=== PATIENT | female | born 1985 | race African-American/Black ===

== ENCOUNTER 2020-06-07 13:34 | Outpatient (RCR) | payer BC, SELFPAY ==
[2020-06-07 13:44] VITALS: BMI 43.0
[2020-06-07 13:49] VITALS: BMI 43.0
== END 2020-08-03 16:31 | disposition home or self-care (01) ==
LOC: ANHDMC 13:34
PROVIDERS: Visit Provider Obstetrics & Gynecology
DX: O24.419 Gestational diabetes mellitus in pregnancy, unspecified control (principal); Z71.3 Dietary counseling and surveillance; Z71.89 Other specified counseling; Z3A.00 Weeks of gestation of pregnancy not specified
CPT/HCPCS: 97802; G0108

== ENCOUNTER 2020-06-22 13:49 | Outpatient (CLI) | payer BC, SELFPAY ==
--- NOTE | ~2020-06-22 | US_ITS ---
EXAMINATION: US OB follow up DATE: 06/22/2020 14:34 INDICATION: Gestational diabetes TECHNIQUE: Real-time ultrasound of the pelvis was performed. The interpreting radiologist was not pre sent for the study. COMPARISON: None. FINDINGS: There is a single living fetus in vertex presentation. The placenta is anterior. Small anechoic veno us pickard within the placenta. heart rate is 161 beats per minute (bpm). The amniotic fluid volum e is subjectively normal. The following biometric data were obtained: BPD: 7.9 cm -> 31 weeks 5 days Head circumference: 28.7 cm -> 31 weeks 4 days Abdominal circumference: 29.9 cm -> 33 weeks 6 days Femur length: 6.4 cm -> 33 weeks 1 days These measurements are concordant. Head circumference to abdominal circumference ratio: 0.96 (normal range 0.96-1.12). Estimated weight: 2138 g (+/-) 321 g. or 4 lbs. 11 oz. (+/-) 11 oz. IMPRESSION: 1. Single living fetus in vertex presentation with heart rate of 161 bpm. 2. Gestational age by ultrasound of 32 weeks 4 day(s) +/- 2 week(s) 2 day(s) with ultrasound estimate d date of delivery (MOE) of 08/13/2020. Estimated weight is 77th percentile by Hadlock criteria when 08/17/2020 is used as the MOE. Please correlate with clinical information or earlier ultrasound s for most accurate MOE. Reviewed, dictated and finalized at location A. IMPRESSION: 1. Single living fetus in vertex presentation with heart rate of 161 bpm. 2. Gestational age by ultrasound of 32 weeks 4 day(s) +/- 2 week(s) 2 day(s) wi th ultrasound estimated date of delivery (MOE) of 08/13/2020. Estimated w eight is 77th percentile by Hadlock criteria when 08/17/2020 is used as the MOE . Please correlate with clinical information or earlier ultrasounds for most ac curate MOE.
== END 2020-06-22 13:50 | disposition home or self-care (01) ==
LOC: ANHIMG 13:55
PROVIDERS: Visit Provider Obstetrics & Gynecology
DX: O24.419 Gestational diabetes mellitus in pregnancy, unspecified control (principal); Z3A.32 32 weeks gestation of pregnancy
CPT/HCPCS: 76816

== ENCOUNTER 2020-08-12 15:41 | Inpatient (IN) | payer OTHER, BC, SELFPAY ==
[2020-08-12] MEDS: DINOPROSTONE 10 MG VAG INSERT VAGINAL (16:56)
[2020-08-12 17:00] VITALS: TEMP 36.6
[2020-08-12 17:49] LABS: Basophils Percent Auto 0.3 % (0.2-1.2); Eosinophils Absolute Auto 0.1 K/mm3 (0-0.3); Hematocrit 38.3 % (37.0-47.0); Hemoglobin 12.8 g/dL (12.0-15.0); Immature Granulocyte Absolute 0.04 K/mm3 (0.00-0.031); Immature Granulocyte Percent A 0.4 % (0-0.5); Lymphocytes Absolute Auto 3.07 K/mm3 (0.9-3.2); Lymphocytes Percent Auto 27.1 % (18.3-44.2); Mean Corpuscular HGB Conc 33.4 g/dl (32-36); Mean Corpuscular Volume 89.9 fl (80-100); Mean Platelet Volume 10.8 fl (7.4-10.4); Monocytes Absolute Auto 0.5 K/mm3 (0.1-0.6); Monocytes Percent Auto 4.3 % (2.6-8.5); Neutrophils Absolute Auto 7.6 K/mm3 (1.3-6.7); Neutrophils Percent Auto 66.9 % (45.5-73.1); Platelet Count Result 217 k/mm3 (150-375); Red Blood Count 4.26 M/mm3 (4.2-5.4); Red Cell Distribution Width 14.3 % (11.5-14.5); White Blood Count 11.3 K/mm3 (4.5-10.0)
[2020-08-12 18:00] LABS: Glucose Point of Care 79 (65-105)
[2020-08-12 20:52] VITALS: BP 114/65; PULSE 74
[2020-08-12 20:52] LABS: Glucose Point of Care 110 (65-105)
[2020-08-12 20:55] VITALS: TEMP 36.3
[2020-08-12] MEDS: INSULIN HUMAN NPH (*BKC) 100 UNITS/ML 7 UNITS SUB-Q (22:32)
[2020-08-12] MEDS: metFORMIN HCL 500 MG TABLET 1000 MG PO (22:32)
[2020-08-13] VITALS (197 sets, daily range): BP systolic 87–146; BP diastolic 24–100; PULSE 52–146; RESP 16–20; TEMP 36.1–36.8; O2SAT 84–100; BMI 43.1
[2020-08-13 02:03] LABS: Glucose Point of Care 100 (65-105)
[2020-08-13] MEDS: OXYTOCIN 30 UNITS/NS 500 ML 30 UNITS/500 ML BAG IV CONT (05:30)
[2020-08-13] MEDS: LACTATED RINGERS 1,000 ML 125 ML IV CONT ×3 (05:30→18:25)
[2020-08-13 05:43] LABS: Glucose Point of Care 119 (65-105)
[2020-08-13 07:02] LABS: Rapid Plasma Reagin Non-Reactive (NonReactive)
--- NOTE | 2020-08-13 07:53 | WPDOBADMIT ---
Obstetrics - Admit Note Admission Note: 34 y/o admitted for induction of labor. Insulin controlled GDM. VSS FHR category 2. Questionable late vs early decelerations Contractions difficult to trace Plan AROM and IUPC Exam: cervix 1-2/90/-3 AROM small amount of clear odorless fluid IUPC placed Anticipate record reviewed. No pertinent additions to the history and/or any subsequent changes in the physical findings that are not consistent with the expected course of the were found. Additions to the history and/or subsequent changes in the physical findings follow. None.
[2020-08-13 10:53] LABS: Glucose Point of Care 100 (65-105)
[2020-08-13 14:35] LABS: Glucose Point of Care 77 (65-105)
[2020-08-13] MEDS: SODIUM CHLORIDE 0.9% IV 300 ML 600 ML I-UTERINE (15:23)
--- NOTE | 2020-08-13 18:32 | WPDANLDPN2 ---
Anes-Prog Note L&D Date/Time: 08/13/20 18:32 Neuro status: Neuro function grossly intact. Vital Signs: Last Vital Signs Temp 97.2 F L 08/13/20 16:35 Pulse 61 08/13/20 18:30 Resp 16 08/13/20 16:35 BP 98/45 L 08/13/20 18:30 Pulse Ox 100 08/13/20 18:30 Pain score (VAS): 0/10 I/O: Intake & Output 08/13/20 08/13/20 08/13/20 07:59 15:59 23:59 Intake Total 1000 1000 Output Total 650 Balance 1000 350 Patient feedback: Called by Kaykay DAVID to LDR 105. Day RN (Roselia) was undoing the tape around the catheter/connector and accidentally cut the epidural catheter into two sections. Cleaned up the connector and repaired the connection.
[2020-08-13 18:56] LABS: Glucose Point of Care 78 (65-105)
[2020-08-13 20:54] LABS: Glucose Point of Care 108 (65-105)
--- NOTE | 2020-08-13 22:02 | PM.OBPRVD ---
OB - Delivery Note Procedure Delivery date: 08/13/20 events: Gestational Diabetes Intrapartal events: None and Deceleration Induction method: per pitocin protocol Delivery monitor: external FHT, external uterine and internal FHT Route of delivery: Episiotomy description: None Laceration Description: None Estimated blood loss (mL): 26 Anesthesia type: Epidural [place] Baby Date of : 08/13/20 Time of : 21:51 Weeks of gestation at delivery: 39 Infant gender: Male Weight (pounds): 7 Weight (ounces): 8 presentation: vertex position: Left Occiput Anterior (Compound presentation. Arm reduced with delivery of shoulder.) Placenta delivery description: Spontaneous score one minute: 7 score five minutes: 9 Narrative: Delivery per Z. Due with my assist once compound presentation noted. Cord gasses collected and handed off to staff.
[2020-08-13] MEDS: OXYTOCIN 30 UNITS/NS 500 ML 30 UNITS/500 ML BAG 125 UNITS IV CONT (22:22)
[2020-08-14 00:01] VITALS: BP 79/41; PULSE 84
[2020-08-14 00:03] VITALS: BP 113/57; PULSE 70
[2020-08-14] MEDS: WITCH HAZEL 40 PADS 1 PAD TOPICAL (00:11)
[2020-08-14] MEDS: BENZOCAINE 20% AER SPR (*SP) 56 GM CAN 1 SPRAY TOPICAL (00:11)
[2020-08-14 00:25] VITALS: BP 115/62; PULSE 77; RESP 16; TEMP 36.5; O2SAT 100
--- NOTE | 2020-08-14 00:25 | OBPPTRN ---
Patient transferred to post room #280 via wheelchair. Support person present. Oriented to unit, room, information board, rooming in, admission packet and security measures. Patient verbalizes understanding. with patient.
[2020-08-14] MEDS: ACETAMINOPHEN 325 MG TABLET 650 MG PO (05:01)
[2020-08-14 05:26] LABS: Hematocrit 34.8 % (37.0-47.0); Hemoglobin 11.6 g/dL (12.0-15.0)
[2020-08-14] MEDS: LEVOTHYROXINE SODIUM 125 MCG TABLET PO (07:00)
--- NOTE | 2020-08-14 07:33 | PM.OBPNVD ---
OB - PN: Subj Subjective Date/time seen: 08/14/20 07:33 Patient comments: no complaints baby status: doing well OB - PN: Obj Data Labs CBC & Chem 7: 08/14/20 05:00 Labs: Laboratory Results - last 24 hr 08/13/20 08/13/20 08/13/20 10:18 14:26 18:54 Hgb Hct POC Capillary Glucose 100 77 78 08/13/20 08/14/20 20:32 05:00 Hgb 11.6 L Hct 34.8 L POC Capillary Glucose 108 OB - PN A/P Plan day: 1 Plan: routine care Time Spent With Patient Time: Total time spent is greater than 50% in coordination of care (as documented) at patient's floor/unit and/or counseling patient: Exam Const: General: cooperative Limitations: no limitations
[2020-08-14 07:40] VITALS: BP 122/83; PULSE 80; RESP 18; TEMP 36.3; O2SAT 97
[2020-08-14] MEDS: DOCUSATE SODIUM 100 MG CAPSULE PO ×2 (07:45→18:01)
--- NOTE | 2020-08-14 11:03 | WPDANLDPN2 ---
Anes-Prog Note L&D Date/Time: 08/14/20 11:03 Comfortable throughout: labor and delivery Neuraxial method: epidural Epidural/Spinal procedure site: clean & non-tender Neuro status: Neuro function grossly intact. Cardiovascular status: normal Respiratory status: normal Airway patency: baseline Mental status: baseline Post-Op hydration status: normal Vital Signs: Last Vital Signs Temp 36.3 C L 08/14/20 07:40 Pulse 80 08/14/20 07:40 Resp 18 08/14/20 07:40 BP 122/83 08/14/20 07:40 Pulse Ox 97 08/14/20 07:40 Pain score (VAS): 2 I/O: Intake & Output 08/13/20 08/14/20 08/14/20 23:59 07:59 15:59 Intake Total 1500 Output Total 650 36 Balance 850 -36 Post-procedural complaints: none Patient feedback: Patient satisfied with anesthetic care.
[2020-08-14] MEDS: IBUPROFEN 600 MG TABLET PO (18:01)
[2020-08-14 18:55] VITALS: BP 125/63; PULSE 74; RESP 18; TEMP 36.6
--- NOTE | 2020-08-15 06:46 | PM.OBPNVD ---
OB - PN: Subj Subjective Date/time seen: 08/15/20 06:46 Patient comments: no complaints baby status: doing well OB - PN: Obj Data Labs CBC & Chem 7: 08/14/20 05:00 OB - PN A/P Plan day: 2 Plan: routine care and discharge home Time Spent With Patient Time: Total time spent is greater than 50% in coordination of care (as documented) at patient's floor/unit and/or counseling patient: Exam Const: General: cooperative Limitations: no limitations
--- NOTE | 2020-08-15 06:47 | P.DS_ITS ---
DS: Admitting Diagnosis Admitting Diagnosis Admitting Diagnosis: IOL OB - DS: Summary OB Procedures : None OB Procedures Intrapartum: Spontaneous Vag Delivery OB Procedures: : None Time Spent with Patient Time attestation: Total time spent providing and/or coordinating discharge services: DS: Data Data Completed and Pending Pending studies at discharge: Pending at discharge 08/13/20 21:54 Surgical [PTH] Routine Discharge Plan Discharge Attending physician on discharge: Elissa Pickett Discharging Clinician: Laya Burgos Patient Disposition: Home, Self-Care Activity: pelvic rest Diet: regular Patient Instructions: Antibiotic Form Stand Alone Forms: General Discharge Information Follow-up/Referrals: Naheed Amador CNM [Certified Nurse Field Interviewer] - 4 Weeks Discharge Medications: Continued levothyroxine 125 mcg capsule 125 mcg PO DAILY RF: 0 Novolin R Regular U-100 Insuln 100 unit/mL Solution 7 unit SUBCUT HS RF: 0 PNV cmb#95-ferrous fumarate-FA [] 28 mg iron- 800 mcg Tablet 1 tablet PO DAILY RF: 0 metformin 500 mg tablet 1,000 mg PO DAILY RF: 0 Date of admission: 08/12/20 15:41 Primary Care Provider: UNKNOWN,DOCTOR Admitting Provider: Elissa Pickett Attending physician on admission: Elissa Pickett Condition: Stable
[2020-08-15 09:00] VITALS: BP 133/69; PULSE 77; RESP 18; TEMP 36.9; O2SAT 98
[2020-08-15] MEDS: LEVOTHYROXINE SODIUM 125 MCG TABLET PO (09:26)
== END 2020-08-15 09:55 | disposition home or self-care (01) | DRG 807 ==
LOC: ANHLDR 15:44 → ANHOB2 08-14 00:27
PROVIDERS: Advanced Practice Midwife; Admitting Provider Obstetrics & Gynecology; Visit Provider Obstetrics & Gynecology
DX: O24.424 Gestational diabetes mellitus in childbirth, insulin controlled (principal); Z37.0 Single live birth; O32.6XX0 Maternal care for compound presentation, not applicable or unspecified; O76 Abnormality in fetal heart rate and rhythm complicating labor and delivery; Z3A.39 39 weeks gestation of pregnancy
CPT/HCPCS: 36415; 85014; 85018; 85025; 86592; 86850; 86900; 86901; 88307; A9270; J1815; J2590; J2795; J7030; J7120